=== PATIENT | male | born 1955 | race Caucasian/White ===

== ENCOUNTER 2017-10-10 12:45 | Inpatient (IN) | payer SELFPAY ==
[~2017-10-10] VITALS: Ht 182.9 cm; Wt 107.0 kg
--- NOTE | ~2017-10-10 | HEMODYNAMI ---
PATIENT:MEAGHAN AMBROCIO MEDICAL RECORD: [id number] : 51 LOCATION:.[place] [id number] ADMISSION DATE: 10/10/17 Generatedon:10/11/201717:07 Patient name: MEAGHAN AMBROCIO Patient #: [id number] SSN: : Date of study: 10/11/2017 Page: Of Hemodynamic Procedure Report Patient Data Patient Demographics Procedure consent was obtained First Name: MEAGHAN Gender: Male Last Name: LOLLY : 1955 Patient #: [id number] Age: 61 year(s) Race: Unknown Additional ID: [id number] Contact details [address]: [address] [place] [address] State: [place] City: [place] Zip code: [address] Past Medical History Allergies: No known allergies Admission Admission Data Admission Date: 10/10/2017 Admission Time: 15:44 Room #: 2204 Weight (lbs.): 236 Weight (kg.): 107.05 Procedure Procedure Types Cath Procedure Peripheral Cath Diagnostic Procedure Cath Peripheral Abscess Abscess Drain with Cath Placement Procedure Description Procedure Date Procedure Date: 10/11/2017 Procedure Start Time: 16:49 Procedure Staff Name Function Raphael Mayorga MD Performing Physician Magan Banuelos RT Scrub Huyen Patrick RN Nurse Mary Kay RT Lab Clerk Mary Kay RT Monitor Procedure Data Cath Procedure Fluoroscopy Diagnostic fluoroscopy Total fluoroscopy Time: 0.5 time: 0.5 min min Diagnostic fluoroscopy Total fluoroscopy dose: 8 dose: 8 mGy mGy Procedure Medications Medication Administration Route Dosage Heparin Flush Bag added to field 1 bags (1000units/500ml NS) Lidocaine 1% added to field 20 Oxygen NC 3 l/min Versed I.V. 1 mg Fentanyl I.V. 50 mcg Versed I.V. 1 mg Fentanyl I.V. 50 mcg Hemodynamics Rest Heart Rate: 0 (bpm) Snapshots Pre Cath Intra NCS Post Cath Vital Signs Time Heart Resp SPO2 etCO2 NIBP (mmHg) Rhythm Pain Sedation Rate (ipm) (%) (mmHg) Status Level (bpm) 16:12:29 93 24 93 0 150/76(97) NSR 0 (11) 10(A) , No pain 16:16:55 14 94 0 147/77(114) NSR 0 (11) 10(A) , No pain 16:21:17 90 14 96 21.9 152/87(106) NSR 0 (11) 10(A) , No pain 16:25:34 91 24 96 21.9 150/80(103) NSR 0 (11) 10(A) , No pain 16:29:54 92 24 96 21.2 149/79(108) NSR 0 (11) 10(A) , No pain 16:34:18 95 19 97 28.7 149/78(116) NSR 0 (11) 10(A) , No pain 16:38:38 92 22 97 25.7 151/79(109) NSR 0 (11) 10(A) , No pain 16:43:00 91 18 97 29.5 149/81(107) NSR 0 (11) 10(A) , No pain 16:47:27 90 18 97 26.4 152/76(108) NSR 0 (11) 10(A) , No pain 16:51:45 90 97 23.4 149/78(110) NSR 0 (11) 10(A) , No pain 16:56:05 90 23 96 24.9 149/78(109) NSR 0 (11) 10(A) , No pain 17:00:29 92 19 96 28.7 142/73(101) NSR 0 (11) 10(A) , No pain 17:04:51 16 97 26.4 138/80(106) NSR 0 (11) 10(A) , No pain Medications Time Medication Route Dose Verified Delivered Reason Notes Effe ctiveness by by 16:13:21 Heparin Flush added 1 Huyen Raphael used for Bag to bags Darnell Mayorga procedure (1000units/500ml field ELIS GOVEA NS) 16:13:41 Lidocaine 1% added 20ml Huyen Lim for local to vial Darnell Mayorga anesthetic field ELIS GOVEA 16:13:56 Oxygen NC 3 Huyen Huyen used for l/min Darnell Patrick RN wine cellar stock clerk 16:52:28 Versed I.V. 1 mg Raphael Matson for Mukesh Patrick RN sedation 16:52:40 Fentanyl I.V. 50 Raphael Matson for aleksandr Patrick RN sedation 17:00:09 Versed I.V. 1 mg Raphael Matson for Mukesh Patrick RN sedation 17:00:20 Fentanyl I.V. 50 Raphael Matson for aleksandr Patrick RN sedation Procedure Log Time Note 15:32:34 Patient Weight : 236 lbs 15:33:11 Use device set IR Diagnostic 15:33:12 Sterile Angiographic Pack opened to sterile field. 15:33:14 Bag Decanter opened to sterile field. 16:08:02 Time tracking: Regular hours 16:08:10 Plan of Care:Hemodynamics will remain stable., Cardiac rhythm will remain stable., Comfort level will be maintained., Respiratory function will remain adequate., Patient/ family verbilizes understanding of procedure., Procedure tolerated without complication., Recovers from procedure without complications.. 16:08:20 Patient received from Med/Surg to IR Alert and oriented. Tansferred to table in Supine position. 16:08:23 Correct patient and procedure confirmed by team. 16:08:26 Signed procedure consent form obtained from patient. 16:08:34 H&P Date Dictated: 10/11/2017 Within 30 days and on chart.. 16:08:36 Pre-procedure instructions explained to patient. 16:08:37 Pre-op teaching completed and patient verbalized understanding. 16:08:39 Family in waiting room. 16:08:41 Patient NPO since Breakfast. 16:08:53 Patient allergic to No known allergies 16:08:56 Is the patient allergic to Iodine/contrast media? No. 16:09:01 Is patient on blood thinner?No 16:09:06 Patient diabetic? Yes. 16:09:09 If diabetic: On Metformin? No 16:09:12 - 16:09:15 ----Pre-sedation anethsthesia assessment.---- 16:09:18 Previous problem with sedation/anesthesia? No ? 16:09:31 Snore? No 16:09:35 Sleep apnea? No 16:09:40 Deviated septum? No 16:09:42 Opens mouth fully? Yes 16:09:44 Sticks out tongue? Yes 16:09:47 Airway obstruction? No ? 16:09:52 Dentures? No ? 16:09:54 - 16:10:12 Right thigh area was prepped with chlora-prep and draped in sterile fashion 16:11:11 ECG and BP/O2 sat monitors applied to patient. 16:11:12 Vital chart was started 16:11:14 Baseline sample Acquired. 16:11:16 Full Disclosure recording started 16:11:17 - 16:11:55 Patient pain scale 1/10 thigh, rt. 16:12:34 IV patent on arrival in right forearm with 0.9% NaCl at O. 16:12:56 - 16:13:21 Heparin Flush Bag (1000units/500ml NS) 1 bags added to field was administered by Raphael Mayorga MD; used for procedure; 16:13:41 Lidocaine 1% 20ml vial added to field was administered by Raphael urban MD; for local anesthetic; 16:13:56 Oxygen 3 l/min NC was administered by Huyen Patrick RN; used for procedure; 16:13:58 - 16:14:05 Alarms reviewed by Kenneth Suggs 16:14:06 Sharps counted by scrub and verified by Himanshu 16:14:08 - 16:46:16 Physician arrived 16:48:32 --------ALL STOP TIME OUT------ 16:48:33 Final Timeout: patient, procedure, and site verified with staff and physician. All members of the team are in agreement. 16:48:45 Sedation plan: IV Moderate Sedation Versed, Fentanyl 16:48:51 Procedure started. 16:49:06 Local anesthetic to right thigh with Lidocaine 1% by Raphael Mayorga MD.INITIAL ACCESS ONLY 16:52:28 Versed 1 mg I.V. was administered by Huyen Patrick RN; for sedation; 16:52:40 Fentanyl 50 mcg I.V. was administered by Huyen Patrick RN; for sedation ; 16:54:41 Cook MITCHELL 180 guide wire opened to sterile field. 16:56:50 STOPCOCK 3-WAY LARGE BORE opened to sterile field. 16:57:04 Abscession 10 FR drainage catheter opened to sterile field. 17:00:09 Versed 1 mg I.V. was administered by Hyuen Patrick RN; for sedation; 17:00:20 Fentanyl 50 mcg I.V. was administered by Huyen Patrick RN; for sedation ; 17:00:26 DILATOR, VESSEL 10/20 opened to sterile field. 17:04:30 10fr abscess drain placed in the upper thigh 17:04:34 Procedure ended.(Physican Out) 17:04:50 Fluoroscopy time 00.50 minutes. 17:04:57 Fluoroscopy dose: 8 mGy 17:04:57 Flurop Dose total: 8 17:05:01 Sharps counted by scrub and verified by RGenevaNGeneva 17:05:04 Procedure and supply charges have been captured, reviewed, submitted an d are correct. 17:05:58 Report given to Med/Surg. 17:06:04 Patient transfered to Outpatients with Bed. 17:07:01 Vital chart was stopped Device Usage Item Name Manufacture Quantity Catalog Hospital Part Current [facility] l Lot# / Number Charge Number Stock Stock Serial# Code Sterile Cardinal 1 [id number] 5 Angiographic Health Pack Bag Decanter [employer] [id number] 5 [employer] Иван MITCHELL [facility] 1 [id number] 5 [id number] 180 guide wire [facility] 1 [id number] 7276 [id number] 5 [id number] 3-WAY LARGE BORE Abscession Angiodynamics 1 [id number] 692216 220754 5 10 FR drainage catheter DILATOR, [employer] 1 [id number] 5 [id number] VESSEL 09/17 Signature Audit [place] Stage Time Signature Unsigned Intra-Procedure 10/11/2017 Mary Kay 5:06:57 PM RT(R) Signatures Monitor : Mary Kay RT Signature : Date : Time : [id number] [place] [address]
[2017-10-10 13:55] LABS: HEMATOCRIT 39.5 % (42.0-54.0); HEMOGLOBIN 13.9 g/dL (13.5-17.5); MCH 30.9 pg (26.0-34.0); MCHC 35.2 g/dL (31.0-37.0); MCV 87.8 fL (80.0-100.0); MEAN PLATELET VOLUME 9.1 fL (7.4-10.4); PLATELET COUNT 383 10x3/uL (130-400); RDW 11.7 % (11.5-14.5); WBC 26.2 10x3/uL (4.8-10.8)
[2017-10-10 14:22] LABS: LYMPHOCYTES 12 % (15-50); NEUTROPHILS 79 % (40-80); PLATELET ESTIMATE NORMAL
[2017-10-10 14:24] LABS: APTT 23.6 SECONDS (22.8-39.4); INR 1.16 (0.85-1.17); PROTIME 14.7 SECONDS (11.6-15.0)
[2017-10-10 14:29] LABS: ALBUMIN 2.3 g/dL (3.4-5.0); ALKALINE PHOSPHATASE 99 U/L (46-116); ALT (SGPT) 28 U/L (10-68); BILIRUBIN - TOTAL 0.35 mg/dL (0.2-1.3); CALC OSMOLALITY 268 mosm/kg (275-300); CALCIUM 8.7 mg/dL (8.5-10.1); CARBON DIOXIDE 24.4 mmol/L (21.0-32.0); CHLORIDE - SERUM 90 mmol/L (98-107); CREATININE - SERUM 0.8 mg/dL (0.6-1.3); GLUCOSE 333 mg/dL (74-106); MAGNESIUM - SERUM 2.1 mg/dL (1.8-2.4); POTASSIUM - SERUM 4.8 mmol/L (3.5-5.1); PROTEIN - SERUM 7.4 g/dL (6.4-8.2); SODIUM 127 mmol/L (136-145); UREA NITROGEN 16 mg/dL (7-18); eGFR NON AFRICAN AMERICAN > 90 mL/min (90-120)
[2017-10-10 17:12] VITALS: BP 148/78; BMI 32.1
[2017-10-10 20:00] VITALS: BP 168/84
[2017-10-11] VITALS: BP 162/79
[2017-10-11 04:00] VITALS: BP 174/81
[2017-10-11 05:00] LABS: BASOPHILS 0.2 % (0-2); EOSINOPHILS 0 % (0-7); HEMATOCRIT 38.5 % (42.0-54.0); HEMOGLOBIN 13.3 g/dL (13.5-17.5); IMMATURE GRANULOCYTES 2.4 % (0-5); LYMPHOCYTES 6.6 % (15-50); MCH 30.5 pg (26.0-34.0); MCHC 34.5 g/dL (31.0-37.0); MCV 88.3 fL (80.0-100.0); MEAN PLATELET VOLUME 8.7 fL (7.4-10.4); NEUTROPHILS 84.8 % (40-80); PLATELET COUNT 376 10x3/uL (130-400); RBC 4.36 10x6/uL (4.20-6.10); RDW 11.6 % (11.5-14.5); WBC 23.1 10x3/uL (4.8-10.8)
[2017-10-11 05:24] LABS: HEMOGLOBIN A1C 10.8 % (4.8-6.0)
[2017-10-11 05:28] LABS: CALCIUM 7.9 mg/dL (8.5-10.1); CARBON DIOXIDE 23.9 mmol/L (21.0-32.0); CHLORIDE - SERUM 93 mmol/L (98-107); CHOL - HDL RATIO 4.3 ratio (2.3-4.9); CHOLESTEROL, TOTAL 143 mg/dL (0-200); CREATININE - SERUM 0.7 mg/dL (0.6-1.3); HDL CHOLESTEROL 33 mg/dL (32-96); LDL CHOLESTEROL 94 mg/dL (0-100); LDL-HDL RATIO 2.8 ratio (1.5-3.5); POTASSIUM - SERUM 4.1 mmol/L (3.5-5.1); SODIUM 127 mmol/L (136-145); TRIGLYCERIDE 80 mg/dL (30-200); eGFR NON AFRICAN AMERICAN > 90 mL/min (90-120)
[2017-10-11 05:29] LABS: CALC OSMOLALITY 261 mosm/kg (275-300); GLUCOSE 239 mg/dL (74-106); UREA NITROGEN 11 mg/dL (7-18)
--- NOTE | 2017-10-11 07:00 | NUR ---
REPORT RECIEVED ASSUMED CARE. PATIENT IN BED WITH NO COMPLAINTS. IV INTACT. CALL LIGHT WITHIN REACH.
[2017-10-11 07:50] VITALS: BP 159/81
[2017-10-11 14:18] VITALS: Ht 182.9 cm; Wt 107.0 kg
--- NOTE | 2017-10-11 16:00 | NUR ---
PATIENT GONE TO IR
--- NOTE | 2017-10-11 18:45 | NUR ---
PATIENT SITTING UP IN BED WITH IV INTACT. VS STABLE. NO COMPLAINTS AT THIS TIME. DRAIN TO THIGH CLEAN DRY AND INTACT. CALL LIGHT WITHIN REACH. FAMILY AT BEDSIDE.
--- NOTE | 2017-10-11 19:35 | NUR ---
RESTING, AT BEDSIDE, NO DISTRESS NOTED, DENIES NEEDS, CALL LIGHT IN REACH, BED LOWEST POSITION, WILL CONTINUE TO MONITOR
[2017-10-11 20:00] VITALS: BP 157/84
--- NOTE | 2017-10-12 02:00 | NUR ---
PT RESTING IN BED WITH NO DISTRESS. RESPIRATIONS EVEN AND UNLABORED. SIDE RAILS X 2. BED LOW. CALL LIGHT IN REACH.
[2017-10-12 04:00] VITALS: BP 161/81
[2017-10-12 05:36] LABS: BASOPHILS 0.2 % (0-2); EOSINOPHILS 0.2 % (0-7); HEMATOCRIT 35.8 % (42.0-54.0); HEMOGLOBIN 12.3 g/dL (13.5-17.5); IMMATURE GRANULOCYTES 1.9 % (0-5); LYMPHOCYTES 8.9 % (15-50); MCH 30.4 pg (26.0-34.0); MCHC 34.4 g/dL (31.0-37.0); MCV 88.6 fL (80.0-100.0); MEAN PLATELET VOLUME 8.7 fL (7.4-10.4); NEUTROPHILS 81.8 % (40-80); PLATELET COUNT 374 10x3/uL (130-400); RBC 4.04 10x6/uL (4.20-6.10); RDW 11.8 % (11.5-14.5); WBC 18.1 10x3/uL (4.8-10.8)
[2017-10-12 06:07] LABS: ALKALINE PHOSPHATASE 110 U/L (46-116); ALT (SGPT) 26 U/L (10-68); BILIRUBIN - TOTAL 0.28 mg/dL (0.2-1.3); CALCIUM 7.9 mg/dL (8.5-10.1); CARBON DIOXIDE 26.6 mmol/L (21.0-32.0); CHLORIDE - SERUM 97 mmol/L (98-107); CREATININE - SERUM 0.8 mg/dL (0.6-1.3); POTASSIUM - SERUM 4.2 mmol/L (3.5-5.1); PROTEIN - SERUM 6.2 g/dL (6.4-8.2); SODIUM 132 mmol/L (136-145); UREA NITROGEN 9 mg/dL (7-18); eGFR NON AFRICAN AMERICAN > 90 mL/min (90-120)
[2017-10-12 06:08] LABS: ALBUMIN 1.7 g/dL (3.4-5.0); CALC OSMOLALITY 274 mosm/kg (275-300); GLUCOSE 290 mg/dL (74-106)
--- NOTE | 2017-10-12 07:00 | NUR ---
REPORT RECIEVED ASSUMED CARE. PATIENT IN BED WITH IV INTACT. NO COMPLAINTS. CALL LIGHT WITHIN REACH.
[2017-10-12 10:18] VITALS: BP 144/75
--- NOTE | 2017-10-12 11:50 | NUR ---
Patient Name: MEAGHAN AMBROCIO Admission Status: ER Accout number: [id number] Admission Date: 10-10-2017 : 1955 Admission Diagnosis:CELLULITIS OF RIGHT LOWER LIMB Attending: ILAN SAHA Current LOS: 2 Anticipated DC Date: Planned Disposition: Home Primary Insurance: UNINSURED DISCOUNT PLAN Discharge Planning Comments: CM MET WITH PATIENT TO ASSESS DISCHARGE PLANNNING NEEDS. PATIENT LIVES [place] WITH HIS AT HOME WHERE HE PLANS TO RETURN THERE. PATIENT STATES HE IS SAFE TO RETURN HOME AND CELESTINO WILL BE THE ONE TO DRIVE HOME. PATIENT IN INDEPENDENT WITH HIS ADL'S. PATIENT HAS 4 STEPS TO ENTER IN HIS HOME. HE DENIES AND DME AND REFUSES ANY NEED FOR HOME HEALTH. CM WILL CONTINUE TO FOLLOW AND ASSIST WITH DISCHARGE PLANNING NEEDS. PCP: [facility] IN [facility] [place] () [phone] Disk Sander: Leyla Graham * Is the patient Alert and Oriented? Yes 0 * How many steps to enter\exit or inside your home? 4 0 * PCP NONE 0 * Pharmacy [facility] 0 * Preadmission Environment Home with Family 0 * ADLs Independent 0 * Equipment None 0 * List name and contact numbers for known caregivers / representatives who currently or will assist patient after discharge: CELESTINO TINSLEY () [phone] * Community resources currently utilized None 0 * Additional services required to return to the preadmission environment? No 0 * Can the patient safely return to the preadmission environment? Yes 0 * Has this patient been hospitalized within the prior 30 days at any hospital? No 0 Grand Total: 0
[2017-10-12 12:17] VITALS: BP 153/76
[2017-10-12 15:46] VITALS: BP 140/72
--- NOTE | 2017-10-12 18:55 | NUR ---
PATIENT IN BED WITH EYES CLOSED RESTING QUIETLY. NO COMPLAINTS. CALL LIGHT WITHIN REACH.
--- NOTE | 2017-10-12 19:54 | NUR ---
RESTING, AT BEDSIDE, DENIES NEEDS, A&O, CALL LIGHT IN REACH, BED LOWEST POSITION, WILL CONTINUE TO MONITOR
[2017-10-12 20:00] VITALS: BP 158/75
[2017-10-13 04:00] VITALS: BP 141/74
--- NOTE | 2017-10-13 05:00 | NUR ---
PT IN BED REQUESTING COFFE. VISITOR AT BEDSIDE. SIDE RAILS ARE UP X 2. BED IS IN LOWEST POSITION. CALL LIGHT IS WITHIN REACH.
[2017-10-13 05:59] LABS: BASOPHILS 0.2 % (0-2); EOSINOPHILS 0.4 % (0-7); HEMATOCRIT 34.6 % (42.0-54.0); HEMOGLOBIN 11.6 g/dL (13.5-17.5); LYMPHOCYTES 16.9 % (15-50); MCH 29.7 pg (26.0-34.0); MCHC 33.5 g/dL (31.0-37.0); MCV 88.5 fL (80.0-100.0); MEAN PLATELET VOLUME 8.6 fL (7.4-10.4); MONOCYTES 7.5 % (2-11); PLATELET COUNT 369 10x3/uL (130-400); RBC 3.91 10x6/uL (4.20-6.10); RDW 11.9 % (11.5-14.5)
[2017-10-13 06:04] LABS: WBC 11.3 10x3/uL (4.8-10.8)
[2017-10-13 06:12] LABS: ALBUMIN 1.6 g/dL (3.4-5.0); ALKALINE PHOSPHATASE 79 U/L (46-116); BILIRUBIN - TOTAL 0.18 mg/dL (0.2-1.3); CALCIUM 7.5 mg/dL (8.5-10.1); CARBON DIOXIDE 27.8 mmol/L (21.0-32.0); CHLORIDE - SERUM 100 mmol/L (98-107); CREATININE - SERUM 0.6 mg/dL (0.6-1.3); PROTEIN - SERUM 5.7 g/dL (6.4-8.2); SODIUM 135 mmol/L (136-145); UREA NITROGEN 8 mg/dL (7-18); eGFR NON AFRICAN AMERICAN > 90 mL/min (90-120)
[2017-10-13 06:14] LABS: ALT (SGPT) 34 U/L (10-68); CALC OSMOLALITY 272 mosm/kg (275-300); GLUCOSE 191 mg/dL (74-106); POTASSIUM - SERUM 3.3 mmol/L (3.5-5.1)
--- NOTE | 2017-10-13 07:00 | NUR ---
REPORT RECIEVED ASSUMED CARE. PATIENT IN BED WITH IV INTACT. NO COMPLAINTS AT THIS TIME. CALL LIGHT WITHIN REACH. FAMILY AT BEDSIDE.
[2017-10-13 08:09] VITALS: BP 189/75
[2017-10-13 12:51] VITALS: BP 146/80
--- NOTE | 2017-10-13 14:42 | NUR ---
NUTRITION F/U CHART REVIEWED. PT VISIT. DIET ADVANCED TO DIABETIC. 100% INTAKE RECENT MEALS. WILL CONTINUE TO PROVIDE DIET, MONITOR PO INTAKE. RD FOLLOWING
[2017-10-13 15:36] VITALS: BP 175/87
--- NOTE | 2017-10-13 18:29 | NUR ---
PATIENT IN BED WITH IV INTACT. NO COMPLAINTS AT THIS TIME. FAMILY AT BEDSIDE. DRAIN INTACT. DRESSING INTACT. THIGH IS RED AND SWOLLEN WITH DRAIN INTACT. CONSENTS ARE SIGNED FOR SURGERY TOMORROW. CALL LIGHT WITHIN REACH.
--- NOTE | 2017-10-13 19:20 | NUR ---
RECIEVED SHIFT REPORT. PT IS LYING IN BED. ALERT AND ORIENTED AND ABLE TO VERBALIZE NEEDS. IV IS PATENT AND FLUIDS ARE RUNNING PER ORDER. PT IS AMBULATORY BUT WAS INSTRUCTED TO CALL FOR ANY ASSISTANCE NEEDED. DRAIN TO RIGHT THIGH PATENT AND SITE C/D/I. PT STATES PAIN IS 4/10. NO NEEDS ARE VERBALIZED AT THIS TIME. WILL CONTINUE TO MONITOR. SIDE RAILS ARE UP X 2. BED IS IN LOWEST POSITION. CALL LIGHT IS WITHIN REACH.
[2017-10-13 20:00] VITALS: BP 173/91
--- NOTE | 2017-10-13 20:46 | NUR ---
SHIFT ASSESSMENT COMPLETED. ANTIBIOTIC HUNG PER ORDER. DRAIN FLUSHED PER ORDER. PT RECIEVED 12 UNITS INSULIN PER SLIDING SCALE FOR CTPL=947. NO NEEDS ARE VOICED AT THIS TIME. WILL MONITOR. SIDE RAILS X 2. BED LOW. CALL LIGHT IN REACH.
[2017-10-14] VITALS: BP 169/85
[2017-10-14 04:00] VITALS: BP 166/82
[2017-10-14 04:51] LABS: BASOPHILS 0.3 % (0-2); EOSINOPHILS 0.4 % (0-7); HEMATOCRIT 35.5 % (42.0-54.0); HEMOGLOBIN 12.3 g/dL (13.5-17.5); IMMATURE GRANULOCYTES 1.4 % (0-5); LYMPHOCYTES 13.5 % (15-50); MCH 30.6 pg (26.0-34.0); MCHC 34.6 g/dL (31.0-37.0); MCV 88.3 fL (80.0-100.0); MEAN PLATELET VOLUME 8.3 fL (7.4-10.4); MONOCYTES 9.1 % (2-11); NEUTROPHILS 75.3 % (40-80); PLATELET COUNT 408 10x3/uL (130-400); RBC 4.02 10x6/uL (4.20-6.10); RDW 11.7 % (11.5-14.5); WBC 11.3 10x3/uL (4.8-10.8)
[2017-10-14 05:14] LABS: ALBUMIN 1.7 g/dL (3.4-5.0); ALKALINE PHOSPHATASE 74 U/L (46-116); CALC OSMOLALITY 274 mosm/kg (275-300); CALCIUM 8.1 mg/dL (8.5-10.1); CARBON DIOXIDE 27.2 mmol/L (21.0-32.0); CHLORIDE - SERUM 101 mmol/L (98-107); CREATININE - SERUM 0.7 mg/dL (0.6-1.3); GLUCOSE 147 mg/dL (74-106); POTASSIUM - SERUM 3.8 mmol/L (3.5-5.1); SODIUM 137 mmol/L (136-145); UREA NITROGEN 8 mg/dL (7-18); eGFR NON AFRICAN AMERICAN > 90 mL/min (90-120)
[2017-10-14 05:22] LABS: ALT (SGPT) 44 U/L (10-68)
--- NOTE | 2017-10-14 08:05 | NUR ---
ASSESSMENT PER FLOW SHEET.PT WITHOUT DISTRESS. NPO FOR SURGERY TODAY. RIGHT ANTERIOR THIGH VERY RED,SWOLLEN AND WARM TO TOUCH.DRAIN TUBE IN PLACE WITH YELLOWISH/GREEN PINK TINTED DRAINAGE IN BILI BAG.DENIES NEEDS AT PRESENT.ALSO DENIES PAIN AT THIS TIME.MONITOR FOR NEEDS
[2017-10-14 08:11] VITALS: BP 133/79
--- NOTE | 2017-10-14 12:40 | NUR ---
PRE MEDS ORDERED.
[2017-10-14 12:45] VITALS: BP 165/85
--- NOTE | 2017-10-14 13:50 | NUR ---
LEFT UNIT VIA BED TO OR
[2017-10-14 15:43] VITALS: BP 148/81
--- NOTE | 2017-10-14 16:00 | NUR ---
BACK FROM OR.DRESSING RIGHT THIGH CDI.VSS
--- NOTE | 2017-10-14 19:36 | NUR ---
REMAINS WITHOUT NEEDS,WITHOUT CHANGE.CONT PLAN OF CARE
[2017-10-14 21:20] VITALS: BP 158/80
[2017-10-15 00:56] VITALS: BP 149/74
[2017-10-15 04:52] VITALS: BP 143/72
[2017-10-15 05:17] LABS: BASOPHILS 0.3 % (0-2); EOSINOPHILS 0.5 % (0-7); HEMOGLOBIN 11.1 g/dL (13.5-17.5); IMMATURE GRANULOCYTES 1.5 % (0-5); LYMPHOCYTES 16.4 % (15-50); MCH 30.2 pg (26.0-34.0); MCHC 33.6 g/dL (31.0-37.0); MCV 89.9 fL (80.0-100.0); MEAN PLATELET VOLUME 8.4 fL (7.4-10.4); MONOCYTES 9.8 % (2-11); NEUTROPHILS 71.5 % (40-80); PLATELET COUNT 384 10x3/uL (130-400); RBC 3.67 10x6/uL (4.20-6.10); RDW 11.9 % (11.5-14.5); WBC 9.3 10x3/uL (4.8-10.8)
[2017-10-15 06:02] LABS: ALBUMIN 1.7 g/dL (3.4-5.0); ALKALINE PHOSPHATASE 71 U/L (46-116); ALT (SGPT) 45 U/L (10-68); CALC OSMOLALITY 273 mosm/kg (275-300); CARBON DIOXIDE 28.4 mmol/L (21.0-32.0); CHLORIDE - SERUM 103 mmol/L (98-107); CREATININE - SERUM 0.7 mg/dL (0.6-1.3); GLUCOSE 112 mg/dL (74-106); POTASSIUM - SERUM 3.7 mmol/L (3.5-5.1); PROTEIN - SERUM 5.7 g/dL (6.4-8.2); SODIUM 137 mmol/L (136-145); UREA NITROGEN 9 mg/dL (7-18); eGFR NON AFRICAN AMERICAN > 90 mL/min (90-120)
--- NOTE | 2017-10-15 08:00 | NUR ---
ASSESSMENT PER FLOW SHEET.PT WITHOUT DISTRESS.DRESSING RIGHT THIGH CDI. MONITOR FOR NEEDS
[2017-10-15 08:02] VITALS: BP 134/62
[2017-10-15 12:26] VITALS: BP 164/78
--- NOTE | 2017-10-15 13:44 | NUR ---
REMAINS WITHOUT DISTRESS.MONITOR FOR NEEDS
--- NOTE | 2017-10-15 15:00 | NUR ---
DRESSING CHANGED ORDERED USING DIRECTOR OF ACCOUNTS PAYABLE.
[2017-10-15 15:51] VITALS: BP 117/89
--- NOTE | 2017-10-15 18:00 | NUR ---
REMAINS WITHOUT NEEDS,WITHOUT CHANGE FROM INITIAL SHIFT ASSESSMENT.CONT PLAN OF CARE
[2017-10-15 20:00] VITALS: BP 183/84
[2017-10-16 04:00] VITALS: BP 133/58
[2017-10-16 05:12] LABS: BASOPHILS 0.3 % (0-2); EOSINOPHILS 0.6 % (0-7); HEMATOCRIT 33.4 % (42.0-54.0); HEMOGLOBIN 11.2 g/dL (13.5-17.5); IMMATURE GRANULOCYTES 1.7 % (0-5); LYMPHOCYTES 20.6 % (15-50); MCH 30.2 pg (26.0-34.0); MCHC 33.5 g/dL (31.0-37.0); MEAN PLATELET VOLUME 8.6 fL (7.4-10.4); MONOCYTES 11.3 % (2-11); NEUTROPHILS 65.5 % (40-80); PLATELET COUNT 396 10x3/uL (130-400); RBC 3.71 10x6/uL (4.20-6.10); WBC 7.2 10x3/uL (4.8-10.8)
[2017-10-16 05:35] LABS: ALBUMIN 1.8 g/dL (3.4-5.0); ALKALINE PHOSPHATASE 77 U/L (46-116); ALT (SGPT) 43 U/L (10-68); BILIRUBIN - TOTAL 0.15 mg/dL (0.2-1.3); CALC OSMOLALITY 278 mosm/kg (275-300); CALCIUM 8.1 mg/dL (8.5-10.1); CARBON DIOXIDE 29.9 mmol/L (21.0-32.0); CHLORIDE - SERUM 104 mmol/L (98-107); CREATININE - SERUM 0.8 mg/dL (0.6-1.3); GLUCOSE 94 mg/dL (74-106); POTASSIUM - SERUM 3.4 mmol/L (3.5-5.1); PROTEIN - SERUM 6.1 g/dL (6.4-8.2); SODIUM 141 mmol/L (136-145); UREA NITROGEN 8 mg/dL (7-18); eGFR NON AFRICAN AMERICAN > 90 mL/min (90-120)
--- NOTE | 2017-10-16 07:52 | NUR ---
PATIENT SITTING UP IN A CHAIR. PATIENT IS AWAKE, ALERT, AND ORIENTED X4. PATIENT DENIES ANY PAIN AT PRESENT TIME. PATIENT DENIES ANY NEEDS AT PRESENT TIME. CALL LIGHT IN PATIENT'S REACH. WILL MONITOR PATIENT FOR ANY NEEDS.
[2017-10-16 09:38] VITALS: BP 149/75
[2017-10-16] MEDS ORDERED: HYDROCODONE-APA1 TAB PO (10:49)
[2017-10-16] MEDS ORDERED: BACTRIM DS TABL1 TAB PO (12:15)
[2017-10-16] MEDS ORDERED: GLUCOPHAGE500 MG PO (12:21)
[2017-10-16 13:41] VITALS: BP 170/87
--- NOTE | 2017-10-16 18:15 | NUR ---
DRESSING CHANGE TO PATIENT'S RIGHT THIGH AREA. TWO OPENED INCISION AREAS PACKED WITH ONE INCH IODOFORM AND 4X4 GAUZE APPLIED ON TOP. THIGH AREA COVERED WITH AN ABD PAD AND DRESSING SECURED WITH MEDIPORE TAPE.
--- NOTE | 2017-10-16 19:15 | NUR ---
RECEIVED CARE FROM DAY NURSE. PT IN BED WITH SPOUSE AT SIDE. PT TO BE DC'D. REPORTS NO NEEDS AT THIS TIME. CALL LIGHT WITHIN REACH. IV SL TO RIGHT FA.
--- NOTE | 2017-10-16 19:45 | NUR ---
LATE ENTRY 1830 PRIMARY NURSE JUST COGNIZANT OF DISCHARGE. PATIENT HAD DISCHARGE ORDERS FROM 1215. IN REVIEW THE PATIENT IS NEWLY DIAGNOSED DIABETIC. HAS BEEN ON SLIDING SCALE COVERAGE. CHANGED TO PO. NO TEACHING DOCUMENTED. PATIENT DOES NOT HAVE INSURANCE. MAY NEED MED ASSIST. HAS SEEN MED DATA SCREENER. MEDICAID PENDING PER HIS . IS CONCERNED ABOUT WOUND CARE. PATIENT HAS NOT HAD WOUND CARE INSTRUCTION. NO HOME HEALTH ORDERS. PM PRIMARY NURSE SPOKE WITH CM. AWAD TO [facility]. AWAITING CB.
[2017-10-16 20:00] VITALS: BP 176/84
--- NOTE | 2017-10-16 20:38 | NUR ---
IV IN RIGHT FA DC'D WITH TIP INTACT.
--- NOTE | 2017-10-16 22:40 | NUR ---
DC'D VIA WC WITH .
--- NOTE | 2017-10-17 11:55 | NUR ---
[id number] PATIENT WAS DISCHARGED TO HOME LAST NIGHT AT 2240. CM TELEPHONED HOME HEALTH PROVIDERS THIS AM CARE IV- DOES NOT ACCEPT MEDICAID PENDING [facility]- SPOKE WITH JOEY. SHE CALLED HER WAREHOUSE DISTRIBUTION ASSOCIATE, JOHANNA. THERE WILL BE A 48 HR DELAY IN PICKING UP NEW REFERRALS. THEY DECLINED. TC TO [facility]. THEY CAN NOT ACCEPT. THEY HAVE CASES PENDING FOR WEDNESDAY AND WEDNESDAY. TC TO [facility]. SPOKE WITH TIMA. IT WOULD BE WEDNESDAY. WOULD HAVE TO CHECK WITH THE WAREHOUSE DISTRIBUTION ASSOCIATE. TC TO [facility]. SPOKE WITH KRISTIE. HE CALLED HIS WAREHOUSE DISTRIBUTION ASSOCIATE, SMILEY. SEND REFERRAL. THEY WILL REVIEW ON WEDNESDAY. TC TO THE PATIENT & ADVISED HIM OF THE ABOVE. HE FEELS HE CAN CHANGE THE DRESSING HIMSELF. WILL AWAIT SCUDDY'S DECISION. HE WAS ABLE TO OBTAIN HIS MEDICATIONS LAST NIGHT.
--- NOTE | 2017-10-18 18:17 | NUR ---
Late Entry-10/16/17 TC to [facility]- does not accept Medicaid pending in adults. TC to [facility]- cannot accept- secondary to case load TC to [facility]- declined TC TO [facility]- declined- do not accept Caid pending TC to [facility]. Faxed referral to [facility]. They stated they would review on Wednesday and call with decision. 10/18/17 CM received TC from [facility] this late am. They could not accept the patient. TC to patient. [facility] had not called him, however his son in law, Ankur, is a volunteer head wood grinder in [place]. He has been changing the dressing. the patient has not called for f/u apt w/ DR Torres. CM advised him to call as directed in D/C instruction.
--- NOTE | 2017-12-06 16:57 | OP ---
PATIENT NAME: MEAGHAN AMBROCIO MEDICAL RECORD: [id number] :[birth year] LOCATION:D.MS [place] ADMISSION DATE:10/10/17 SURGEON: ARACELI WARD MD DATE OF OPERATION: 10/14/2017 PREOPERATIVE DIAGNOSIS: A very large abscess of the right thigh. POSTOPERATIVE DIAGNOSIS: A very large abscess of the right thigh. PROCEDURE: Excisional debridement of very large abscess of the right thigh to include skin, subcutaneous tissue, portions of fat, fascia, and muscle approximately 60 cm. OPERATIVE SUMMARY IN DETAIL: After obtaining the appropriate orthopedic surgery consent as well as anesthetic consultation, evaluation and clearance, the patient was brought to the operating room and placed on the operating table in supine position. After general laryngeal mask was administered, the patient's right lower extremity was prepped and draped in a routine sterile fashion. Two incisions were made one where the previous drain was placed by interventional radiology. However, it was a very large cavity. A second incision was made distally for through and through irrigation along with a curettage and rongeur debridement. Copious amounts of fluid was pulsatile lavaged through this. There was undermining in all directions. At this point, the entire cavity was packed with 1-inch iodoform gauze. Sterile dressings were applied. The patient was awakened and taken to recovery room in stable condition. All final needle and sponge counts were correct. TRANSINT:[id number] Voice Confirmation ID: [id number] DOCUMENT ID: [id number] ARACELI WARD MD at 1657 CC: [id number] DICTATION DATE: 12/03/17 1511 HARP MAKER: 12/03/17 1546 DIS IN 10/16/17 [id number] [place] [address]
== END 2017-10-16 22:34 | disposition home or self-care (01) | DRG 581 ==
LOC: D.ER 12:45 → D.MS 15:44
PROVIDERS: Emergency Medicine; Orthopaedic Surgery; ADMIT Emergency Medicine
PROC: 0K9Q30Z Drainage of Right Upper Leg Muscle with Drainage Device, Percutaneous Approach (ICD-10-PCS; 2017-10-11)
PROC: 0K9Q0ZZ Drainage of Right Upper Leg Muscle, Open Approach (ICD-10-PCS; principal; 2017-10-14 11:45)
DX: L03.115 Cellulitis of right lower limb (principal); E11.65 Type 2 diabetes mellitus with hyperglycemia

== ENCOUNTER → 2017-12-27 09:54 | Outpatient (CLI) | payer OTHER ==
[2017-10-11 14:18] VITALS: BMI 32.0
[~2017-12-27 09:54] MED LIST: BACTRIM DS TABL1 TAB PO; GLUCOPHAGE500 MG PO; HYDROCODONE-APA1 TAB PO
[2017-12-27 10:09] LABS: BASOPHILS 0.6 % (0-2); EOSINOPHILS 0 % (0-7); HEMOGLOBIN 13.2 g/dL (13.5-17.5); IMMATURE GRANULOCYTES 0.4 % (0-5); LYMPHOCYTES 33.2 % (15-50); MCH 30.2 pg (26.0-34.0); MCHC 34.7 g/dL (31.0-37.0); MEAN PLATELET VOLUME 8.5 fL (7.4-10.4); MONOCYTES 8.7 % (2-11); NEUTROPHILS 57.1 % (40-80); PLATELET COUNT 207 10x3/uL (130-400); RBC 4.37 10x6/uL (4.20-6.10); RDW 12.7 % (11.5-14.5); WBC 4.8 10x3/uL (4.8-10.8)
[2017-12-27 10:38] LABS: C-REACTIVE PROTEIN 0.6 mg/dL (0.0-0.9); CALC OSMOLALITY 285 mosm/kg (275-300); CALCIUM 8.7 mg/dL (8.5-10.1); CARBON DIOXIDE 27.3 mmol/L (21.0-32.0); CHLORIDE - SERUM 99 mmol/L (98-107); POTASSIUM - SERUM 4.2 mmol/L (3.5-5.1); SODIUM 138 mmol/L (136-145); UREA NITROGEN 11 mg/dL (7-18); eGFR NON AFRICAN AMERICAN 80 mL/min (90-120)
[2017-12-27 10:44] LABS: GLUCOSE 296 mg/dL (74-106)
[2017-12-27 11:18] LABS: ERYTHROCYTE SEDIMENTATION RATE 15 mm/hr (0-20)
== END | disposition home or self-care (01) ==
LOC: D.LAB 09:54
PROVIDERS: Orthopaedic Surgery
DX: L03.315 Cellulitis of perineum (principal)